=== PATIENT | female | born 1995 | race Caucasian/White ===

== ENCOUNTER 2016-12-21 10:32 | Emergency (ER) | payer OTHER ==
--- NOTE | 2016-12-21 13:01 | DIAGNOSTIC IMAGING REPORT ---
PROCEDURE: XR MANDIBLE PARTIAL INDICATION: LEFT TMJ PAIN TECHNIQUE: 68 COMPARISON: None. FINDINGS: No fracture dislocation. TMJs appear normal. Soft tissues are unremarkable. IMPRESSION: 1. Negative study. Consider TMJ MRI.
--- NOTE | 2016-12-21 13:19 | ED NURSING NOTES ---
Clinical Report - Nurses [facility] [address] [place] [address] 12/21/2016 10:34 Patient: JAMES GONSALEZ TRIAGE Triage time 10:42. Acuity: LEVEL 4. Chief Complaint: JAW PAIN and (left jaw unable to eat). Alert. No acute distress. --10:45 Herlinda Noyola R.N. 10:46 12/21/16. BP: 118/80. HR: 88. RR: 16. O2 saturation: 100%. Temp: 98.3 F. Pain level now 5/10. --10:47 Herlinda Noyola R.N. Weight: 44.4 kg stated. Height/Length: 61 inches Per Patient. BMI: 18.5. --10:43 Herlinda Noyola R.N. Medications Albuterol Sulfate Inhalation. control patch. --10:44 Herlinda oNyola R.N. Allergies Amoxicillin. Penicillin. Sulfa Antibiotics. --10:44 Herlinda Noyola R.N. History Arrived by private vehicle, and accompanied by family. Primary physician (Kirk). Onset. (about 1 weeks). 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 SOCIAL HX: Heavy tobacco smoker (cigarette)- less than 1 pack per day. History of heavy drug use: marijuana. No alcohol use. --10:45 Herlinda Noyola R.N. The patient has no dental appointment scheduled. --10:47 Herlinda Noyola R.N. PROBLEMS: Gastroenteritis. Dental Pain. Asthma. Vomiting. URI. UTI - Urinary Tract Infection. Radius Fracture. Contusion. Tetanus Status. Immunizations. LNMP - Last Normal Menstrual Period. --10:44 Herlinda Noyola R.N. ADDITIONAL SURGERIES: Dental Surgery. --10:44 Herlinda Noyola R.N. PHYSICAL ASSESSMENT Ambulatory to room. GENERAL / NEURO / PSYCH: Alert. Oriented X 4. Appears in no acute distress. --10:47 Herlinda Noyola R.N. NURSING PROGRESS NOTES Two patient identifiers checked. Call light placed in reach. Side rails up x 1. Patient ready for evaluation- ED physician notified. --10:48 Herlinda Noyola R.N. 11:34 12/21/2016 Percocet (Oxycodone-Acetaminophen) PO 0.5 tablet given. Allergies verified, confirmed 5 rights and sedative warning given to the patient. --11:34 Herlinda Noyola R.N. DISPOSITION / DISCHARGE Departure time: 13:34. Condition at departure: improved. No learning barriers present. Discharge instructions provided and reviewed with the patient. Parent verbalized understanding. Written instructions provided in Greek. The patient was discharged home and accompanied by parent. She left the Emergency Department ambulatory and via private vehicle. Parent driving. --13:34 Herlinda Noyola R.N. 13:34 12/21/16. BP: 116/78. HR: 80. RR: 16. O2 saturation: 99%. Pain level now 10. --13:34 Herlinda Noyola R.N. Locked/Released at 12/21/2016 14:39 by Herlinda Noyola R.N.
--- NOTE | 2016-12-21 13:19 | ED CLINICAL REPORT ---
Clinical Report - Physicians/Mid Levels [facility] [address] [place] [address] 12/21/2016 10:34 Patient: JAMES GONSALEZ Time Seen: 1045; initial patient contact. Arrived- By private vehicle. Historian- patient. HISTORY OF PRESENT ILLNESS Chief Complaint: left TMJ area. Location of injuries- (left TMJ area). The injury occurred past a few days. Occurred at home. (states she was chewing and felt a pop). The patient complains of moderate pain. No blow to the head, neck pain, loss of consciousness or seizure. Not dazed. no recent dental work or tooth pain. REVIEW OF SYSTEMS All systems otherwise negative, except as recorded above. PAST HISTORY See nurses notes. Tetanus immunization status is up-to-date. Medications: Albuterol Sulfate Inhalation. control patch. Allergies: Amoxicillin. Penicillin. Sulfa Antibiotics. PHYSICAL EXAM Appearance: Alert. No acute distress. Head: Head non-tender. No swelling of head. Eyes: Pupils equal, round and reactive to light. EOM intact. ENT: No dental injury. No hemotympanum. Pharynx normal. (left TMJ tenderness. no clicking. no avinash abnormalities. no crepitus. normal dentition). Neck: Painful ROM in the neck. No decreased ROM or muscle spasm in the neck. No pain with movement of head/neck. Tenderness present. No vertebral tenderness. CVS: Normal heart rate and rhythm. Heart sounds normal. Pulses normal. Respiratory: Breath sounds normal. Chest nontender. Abdomen: Soft and nontender. No organomegaly. Skin: Skin intact. Skin warm and dry. Normal skin color. Normal skin turgor. LABS, X-RAYS, AND EKG Mandible X-rays: (PROCEDURE: XR MANDIBLE PARTIAL INDICATION: LEFT TMJ PAIN TECHNIQUE: 68 COMPARISON: None. FINDINGS: No fracture dislocation. TMJs appear normal. Soft tissues are unremarkable. IMPRESSION: 1. Negative study. Consider TMJ MRI.). The X-rays were independently viewed by me and interpreted by the radiologist. The X-rays were discussed with the radiologist (via pacs). PROGRESS AND PROCEDURES Course of Care: Patient with left TMJ tenderness. No signs of infection. patient with no signs of dislocation. Patient able to open mouth fully. Work up for mandibular xray ordered for possible osseous abnormality. Patient agreeable. Work up shows patient without dislocation. Pain improved. Discussed with patient work up, diagnosis, home care, follow up, and return precautions. All questions answered. patient expressed understanding of these instructions and was agreeable to them. Disposition: Discharged. Condition: good. CLINICAL IMPRESSION 12/21/2016 10:46 BP: 118/80. HR: 88. RR: 16. O2 saturation: 100%. Temp: 98.3 F. Blood pressure normal. Oxygen saturation normal. Left sided acute temporomandibular joint syndrome. INSTRUCTIONS Warnings: GENERAL WARNINGS: Return or contact your physician immediately if your condition worsens or changes unexpectedly, if not improving as expected, or if other problems arise. Specifically return if pain, vomiting, bleeding, breathing difficulty or fever. Your Current Medications: CONTINUE TAKING THE FOLLOWING MEDICATIONS: Albuterol Sulfate Inhalation. control patch*. Prescription Medications: Motrin 600 mg tablets: take 1 tablet orally every 6 hours as needed for pain, stiffness or swelling. Dispense thirty (30). No refill. Substitution is permissible. (take with food) Percocet 5 mg/325 mg: take 1 tablet orally every 6 hours as needed for pain. Dispense twelve (12). No refill. Substitution is permissible. Follow-up: Return to the emergency department as needed. Follow up with your doctor in three days. Reason for referral: recheck today's concerns. Summary of care provided to patient via paper. Screening today revealed the patient's blood pressure to be in the normal range. The patient should follow up with a primary care provider for blood pressure management. Understanding of the discharge instructions verbalized by patient. Follow-up with: Eduardo Hylton MD, ENT, , [address], , [place], [id number] Follow up in one week. Reason for referral: recheck today's concerns. . Summary of care provided to patient via paper. (Electronically signed by Matt Wong Dr. 12/23/2016 9:39)
--- NOTE | 2016-12-21 13:19 | ED ORDER SUMMARY ---
..... Patient: JAMES GONSALEZ OrderSheet [facility] VisitID: [id number] [place] [address] 21y, F Registration Date/Time: 12/21/2016 ORDER SHEET Weight: 44.4 kg (stated) Allergies: Amoxicillin, Penicillin, Sulfa Antibiotics GENERAL ORDERS: Mandible Partial Urgent (11:14 12/21/2016 Benson Umaña) (Ack 11:17 PRnelsynandez) (11:27 DMaziarka R.N.) MEDICATION ORDERS: Percocet PO 5/325 mg (HIGH ALERT MEDICATION, NOW) (11:14 12/21/2016 Benson Umaña) (Ack 11:27 DMaziarka R.N.) (11:34 DMaziarka R.N.) IV FLUIDS: ORDER SHEET NOTES: [Electronically signed by Herlinda Noyola R.N. (14:39 12/21/2016)] [Electronically signed by Matt Wong Dr. (09:39 12/23/2016)] [Electronically locked/signed by Herlinda Noyola R.N. (14:39 12/21/2016)]
--- NOTE | 2016-12-21 13:19 | ED CLINICAL REPORT ---
Clinical Report - Physicians/Mid Levels [facility] [address] [place] [address] 12/21/2016 10:34 Patient: JAMES GONSALEZ Time Seen: 1045; initial patient contact. Arrived- By private vehicle. Historian- patient. HISTORY OF PRESENT ILLNESS Chief Complaint: left TMJ area. Location of injuries- (left TMJ area). The injury occurred past a few days. Occurred at home. (states she was chewing and felt a pop). The patient complains of moderate pain. No blow to the head, neck pain, loss of consciousness or seizure. Not dazed. no recent dental work or tooth pain. REVIEW OF SYSTEMS All systems otherwise negative, except as recorded above. PAST HISTORY See nurses notes. Tetanus immunization status is up-to-date. Medications: Albuterol Sulfate Inhalation. control patch. Allergies: Amoxicillin. Penicillin. Sulfa Antibiotics. PHYSICAL EXAM Appearance: Alert. No acute distress. Head: Head non-tender. No swelling of head. Eyes: Pupils equal, round and reactive to light. EOM intact. ENT: No dental injury. No hemotympanum. Pharynx normal. (left TMJ tenderness. no clicking. no avinash abnormalities. no crepitus. normal dentition). Neck: Painful ROM in the neck. No decreased ROM or muscle spasm in the neck. No pain with movement of head/neck. Tenderness present. No vertebral tenderness. CVS: Normal heart rate and rhythm. Heart sounds normal. Pulses normal. Respiratory: Breath sounds normal. Chest nontender. Abdomen: Soft and nontender. No organomegaly. Skin: Skin intact. Skin warm and dry. Normal skin color. Normal skin turgor. LABS, X-RAYS, AND EKG Mandible X-rays: (PROCEDURE: XR MANDIBLE PARTIAL INDICATION: LEFT TMJ PAIN TECHNIQUE: 68 COMPARISON: None. FINDINGS: No fracture dislocation. TMJs appear normal. Soft tissues are unremarkable. IMPRESSION: 1. Negative study. Consider TMJ MRI.). The X-rays were independently viewed by me and interpreted by the radiologist. The X-rays were discussed with the radiologist (via pacs). PROGRESS AND PROCEDURES Course of Care: Patient with left TMJ tenderness. No signs of infection. patient with no signs of dislocation. Patient able to open mouth fully. Work up for mandibular xray ordered for possible osseous abnormality. Patient agreeable. Work up shows patient without dislocation. Pain improved. Discussed with patient work up, diagnosis, home care, follow up, and return precautions. All questions answered. patient expressed understanding of these instructions and was agreeable to them. Disposition: Discharged. Condition: good. CLINICAL IMPRESSION 12/21/2016 10:46 BP: 118/80. HR: 88. RR: 16. O2 saturation: 100%. Temp: 98.3 F. Blood pressure normal. Oxygen saturation normal. Left sided acute temporomandibular joint syndrome. INSTRUCTIONS Warnings: GENERAL WARNINGS: Return or contact your physician immediately if your condition worsens or changes unexpectedly, if not improving as expected, or if other problems arise. Specifically return if pain, vomiting, bleeding, breathing difficulty or fever. Your Current Medications: CONTINUE TAKING THE FOLLOWING MEDICATIONS: Albuterol Sulfate Inhalation. control patch*. Prescription Medications: Motrin 600 mg tablets: take 1 tablet orally every 6 hours as needed for pain, stiffness or swelling. Dispense thirty (30). No refill. Substitution is permissible. (take with food) Percocet 5 mg/325 mg: take 1 tablet orally every 6 hours as needed for pain. Dispense twelve (12). No refill. Substitution is permissible. Follow-up: Return to the emergency department as needed. Follow up with your doctor in three days. Reason for referral: recheck today's concerns. Summary of care provided to patient via paper. Screening today revealed the patient's blood pressure to be in the normal range. The patient should follow up with a primary care provider for blood pressure management. Understanding of the discharge instructions verbalized by patient. Follow-up with: Eduardo Hylton MD, ENT, , [address], , [place], [id number] Follow up in one week. Reason for referral: recheck today's concerns. . Summary of care provided to patient via paper. (Electronically signed by Matt Wong Dr. 12/23/2016 9:39)
--- NOTE | 2016-12-21 13:19 | ED ORDER SUMMARY ---
..... Patient: JAMES GONSALEZ OrderSheet [facility] VisitID: [id number] [place] [address] 21y, F Registration Date/Time: 12/21/2016 ORDER SHEET Weight: 44.4 kg (stated) Allergies: Amoxicillin, Penicillin, Sulfa Antibiotics GENERAL ORDERS: Mandible Partial Urgent (11:14 12/21/2016 Benson Umaña) (Ack 11:17 NMnelsynandez) (11:27 DMaziarka R.N.) MEDICATION ORDERS: Percocet PO 5/325 mg (HIGH ALERT MEDICATION, NOW) (11:14 12/21/2016 Benson Umaña) (Ack 11:27 DMaziarka R.N.) (11:34 DMaziarka R.N.) IV FLUIDS: ORDER SHEET NOTES: [Electronically signed by Herlinda Noyola R.N. (14:39 12/21/2016)] [Electronically signed by Matt Wong Dr. (09:39 12/23/2016)] [Electronically locked/signed by Herlinda Noyola R.N. (14:39 12/21/2016)]
--- NOTE | 2016-12-21 13:19 | ED NURSING NOTES ---
Clinical Report - Nurses [facility] [address] [place] [address] 12/21/2016 10:34 Patient: JAMES GONSALEZ TRIAGE Triage time 10:42. Acuity: LEVEL 4. Chief Complaint: JAW PAIN and (left jaw unable to eat). Alert. No acute distress. --10:45 Herlinda Noyola R.N. 10:46 12/21/16. BP: 118/80. HR: 88. RR: 16. O2 saturation: 100%. Temp: 98.3 F. Pain level now 5/10. --10:47 Herlinda Noyola R.N. Weight: 44.4 kg stated. Height/Length: 61 inches Per Patient. BMI: 18.5. --10:43 Herlinda Noyola R.N. Medications Albuterol Sulfate Inhalation. control patch. --10:44 Herlinda Noyola R.N. Allergies Amoxicillin. Penicillin. Sulfa Antibiotics. --10:44 Herlinda Noyola R.N. History Arrived by private vehicle, and accompanied by family. Primary physician (Kirk). Onset. (about 1 weeks). 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 SOCIAL HX: Heavy tobacco smoker (cigarette)- less than 1 pack per day. History of heavy drug use: marijuana. No alcohol use. --10:45 Herlinda Noyola R.N. The patient has no dental appointment scheduled. --10:47 Herlinda Noyola R.N. PROBLEMS: Gastroenteritis. Dental Pain. Asthma. Vomiting. URI. UTI - Urinary Tract Infection. Radius Fracture. Contusion. Tetanus Status. Immunizations. LNMP - Last Normal Menstrual Period. --10:44 Herlinda Noyola R.N. ADDITIONAL SURGERIES: Dental Surgery. --10:44 Herlinda Noyola R.N. PHYSICAL ASSESSMENT Ambulatory to room. GENERAL / NEURO / PSYCH: Alert. Oriented X 4. Appears in no acute distress. --10:47 Herlinda Noyola R.N. NURSING PROGRESS NOTES Two patient identifiers checked. Call light placed in reach. Side rails up x 1. Patient ready for evaluation- ED physician notified. --10:48 Herlinda Noyola R.N. 11:34 12/21/2016 Percocet (Oxycodone-Acetaminophen) PO 0.5 tablet given. Allergies verified, confirmed 5 rights and sedative warning given to the patient. --11:34 Herlinda Noyola R.N. DISPOSITION / DISCHARGE Departure time: 13:34. Condition at departure: improved. No learning barriers present. Discharge instructions provided and reviewed with the patient. Parent verbalized understanding. Written instructions provided in Slovak. The patient was discharged home and accompanied by parent. She left the Emergency Department ambulatory and via private vehicle. Parent driving. --13:34 Herlinda Noyola R.N. 13:34 12/21/16. BP: 116/78. HR: 80. RR: 16. O2 saturation: 99%. Pain level now 10. --13:34 Herlinda Noyola R.N. Locked/Released at 12/21/2016 14:39 by Herlinda Noyola R.N.
--- NOTE | 2016-12-23 09:39 | ED DISCHARGE INSTRUCTIONS ---
Patient: JAMES GONSALEZ General Instructions [facility] VisitID: [id number] [address] [place] [address] 21y, F Registration Date/Time: 12/21/2016 12/21/2016 10:46 BP: 118/80. HR: 88. RR: 16. O2 saturation: 100%. Temp: 98.3 F. Blood pressure normal. Oxygen saturation normal. Left sided acute temporomandibular joint syndrome. INSTRUCTIONS Warnings: GENERAL WARNINGS: Return or contact your physician immediately if your condition worsens or changes unexpectedly, if not improving as expected, or if other problems arise. Specifically return if pain, vomiting, bleeding, breathing difficulty or fever. Your Current Medications: CONTINUE TAKING THE FOLLOWING MEDICATIONS: Albuterol Sulfate Inhalation. control patch*. Prescription Medications: Motrin 600 mg tablets: take 1 tablet orally every 6 hours as needed for pain, stiffness or swelling. Dispense thirty (30). No refill. Substitution is permissible. (take with food) Percocet 5 mg/325 mg: take 1 tablet orally every 6 hours as needed for pain. Dispense twelve (12). No refill. Substitution is permissible. Follow-up: Return to the emergency department as needed. Follow up with your doctor in three days. Reason for referral: recheck today's concerns. Summary of care provided to patient via paper. Screening today revealed the patient's blood pressure to be in the normal range. The patient should follow up with a primary care provider for blood pressure management. Understanding of the discharge instructions verbalized by patient. Follow-up with: Eduardo Hylton MD, ENT, , [address] , [place], [id number] Follow up in one week. Reason for referral: recheck today's concerns. . Summary of care provided to patient via paper. ADDITIONAL INFORMATION TMJ Syndrome This is a condition with chronic or recurrent pain in the joint of the jaw (in front of the ear). The pain may cause limited motion of the jaw, a locking or catching sensation, clicking, popping or grinding sounds from the joint with movement. It may also lead to headache, earache or neck pain. It is sometimes caused by inflammation in the joint, injury or [id number] of the cartilage in the joint, involuntary grinding of the teeth or poorly fitting dentures. Emotional stress and tension are often a factor. Most cases resolve completely within a few months with proper treatment. Home Care: 1) Rest the jaw by avoiding crunchy or hard foods to chew. Do not eat hard or sticky candies. Soft foods and liquids are easier on the jaw. Protect your jaw while yawning. 2) Hot packs (small towel soaked in hot water) applied to the jaw may give relief by reducing muscle spasm. You may use a heating pad or a towel soaked in hot water. Some people get relief with cold packs, so try both and see which one works best for you. 3) You may use acetaminophen (Tylenol) or ibuprofen (Motrin, Advil) to control pain, unless another medicine was prescribed. [ NOTE : If you have chronic liver or kidney disease or ever had a stomach ulcer or GI bleeding, talk with your doctor before using these medicines.] 4) If you suspect emotional stress is related to your condition. a) Try to identify the sources of stress in your life. It may not be obvious! These may include: -- Daily hassles of life that pile up (traffic jams, missed appointments, car troubles) -- Major life changes, both good (new baby, job promotion) and bad (loss of job, loss of loved one) -- Overload: feeling that you have too many responsibilities and can't take care of everything at once -- Helplessness: feeling like your problems are more than you can solve b) When possible, do something about the source of your stress: avoid hassles, limit the amount of change that is happening in your life at one time and take a break when you feel overloaded. c) Unfortunately, many stressful situations cannot be avoided. Therefore, it is necessary to learn HOW TO MANAGE STRESS better. There are many proven methods that work and will reduce your anxiety. These include simple things like exercise, good nutrition and adequate rest. Also, there are certain techniques that are helpful: relaxation and breathing exercises, visualization, biofeedback, meditation or simply taking some time-out to clear your mind. For more information about this, consult your doctor or go to a local bookstore and review the many books and tapes available on this subject. Follow-Up as directed with a dentist or oral surgeon. Further testing and additional treatment may be required. If you grind your teeth at night, a custom-made "bite guard" may help you. If stress is an important factor and does not respond to the above simple measures, talk to your doctor about a referral for stress management. Get Prompt Medical Attention if any of the following occur: -- Your face becomes swollen or red -- Pain worsens -- 100.0F (37.8C) -- Increasing neck, mouth, tooth or throat pain Ibuprofen Oral tablet What is this medicine? IBUPROFEN (eye BYOO proe fen) is a non-steroidal anti-inflammatory drug (NSAID). It is used for dental pain, fever, headaches or migraines, osteoarthritis, rheumatoid arthritis, or painful monthly periods. It can also relieve minor aches and pains caused by a cold, flu, or sore throat. How should I use this medicine? Take this medicine by mouth with a glass of water. Follow the directions on the prescription label. Take this medicine with food if your stomach gets upset. Try to not lie down for at least 10 minutes after you take the medicine. Take your medicine at regular intervals. Do not take your medicine more often than directed. A special MedGuide will be given to you by the pharmacist with each prescription and refill. Be sure to read this information carefully each time. Talk to your patent solicitor regarding the use of this medicine in children. Special care may be needed. What side effects may I notice from receiving this medicine? Side effects that you should report to your doctor or health career and transition teacher as soon as possible: allergic reactions like skin rash, itching or hives, swelling of the face, lips, or tongue black or bloody stools, blood in the urine or in vomit breathing problems changes in vision chest pain general ill feeling or flu-like symptoms nausea or vomiting redness, blistering, peeling or loosening of the skin, including inside the mouth slurred speech or weakness on one side of the body stomach pain unexplained weight gain or swelling unusually weak or tired yellowing of eyes or skin Side effects that usually do not require medical attention (report to your doctor or health career and transition teacher if they continue or are bothersome): constipation or diarrhea dizziness gas or heartburn stomach upset What may interact with this medicine? Do not take this medicine with any of the following medications: cidofovir ketorolac methotrexate pemetrexed This medicine may also interact with the following medications: alcohol aspirin diuretics lithium other drugs for inflammation like prednisone warfarin What if I miss a dose? If you miss a dose, take it as soon as you can. If it is almost time for your next dose, take only that dose. Do not take double or extra doses. Where should I keep my medicine? Keep out of the reach of children. Store at room temperature between 15 and 30 degrees C (59 and 86 degrees F). Keep container tightly closed. Throw away any unused medicine after the expiration date. What should I tell my health care provider before I take this medicine? They need to know if you have any of these conditions: asthma cigarette smoker drink more than 3 alcohol containing drinks a day heart disease or circulation problems such as heart failure or leg edema (fluid retention) high blood pressure kidney disease liver disease stomach bleeding or ulcers an unusual or allergic reaction to ibuprofen, aspirin, other NSAIDS, other medicines, foods, dyes, or preservatives or trying to get breast-feeding What should I watch for while using this medicine? Tell your doctor or healthcare professional if your symptoms do not start to get better or if they get worse. This medicine does not prevent heart attack or stroke. In fact, this medicine may increase the chance of a heart attack or stroke. The chance may increase with longer use of this medicine and in people who have heart disease. If you take aspirin to prevent heart attack or stroke, talk with your doctor or health career and transition teacher. Do not take other medicines that contain aspirin, ibuprofen, or naproxen with this medicine. Side effects such as stomach upset, nausea, or ulcers may be more likely to occur. Many medicines available without a prescription should not be taken with this medicine. This medicine can cause ulcers and bleeding in the stomach and intestines at any time during treatment. Ulcers and bleeding can happen without warning symptoms and can cause . To reduce your risk, do not smoke cigarettes or drink alcohol while you are taking this medicine. You may get drowsy or dizzy. Do not drive, use machinery, or do anything that needs mental alertness until you know how this medicine affects you. Do not stand or sit up quickly, especially if you are an older patient. This reduces the risk of dizzy or fainting spells. This medicine can cause you to bleed more easily. Try to avoid damage to your teeth and gums when you brush or floss your teeth. Oxycodone Hydrochloride, Acetaminophen Oral tablet What is this medicine? ACETAMINOPHEN; OXYCODONE (a set a NATALIYA suzie fen; ox i KOE done) is a pain reliever. It is used to treat mild to moderate pain. How should I use this medicine? Take this medicine by mouth with a full glass of water. Follow the directions on the prescription label. Take your medicine at regular intervals. Do not take your medicine more often than directed. Talk to your patent solicitor regarding the use of this medicine in children. Special care may be needed. Patients over 65 years old may have a stronger reaction and need a smaller dose. What side effects may I notice from receiving this medicine? Side effects that you should report to your doctor or health career and transition teacher as soon as possible: allergic reactions like skin rash, itching or hives, swelling of the face, lips, or tongue breathing difficulties, wheezing confusion light headedness or fainting spells severe stomach pain yellowing of the skin or the whites of the eyes Side effects that usually do not require medical attention (report to your doctor or health career and transition teacher if they continue or are bothersome): dizziness drowsiness nausea vomiting What may interact with this medicine? alcohol antihistamines barbiturates like amobarbital, butalbital, butabarbital, methohexital, pentobarbital, phenobarbital, thiopental, and secobarbital benztropine drugs for bladder problems like solifenacin, trospium, oxybutynin, tolterodine, hyoscyamine, and methscopolamine drugs for breathing problems like ipratropium and tiotropium drugs for certain stomach or intestine problems like propantheline, homatropine methylbromide, glycopyrrolate, atropine, belladonna, and dicyclomine general anesthetics like etomidate, ketamine, nitrous oxide, propofol, desflurane, enflurane, halothane, isoflurane, and sevoflurane medicines for depression, anxiety, or psychotic disturbances medicines for sleep muscle relaxants naltrexone narcotic medicines (opiates) for pain phenothiazines like perphenazine, thioridazine, chlorpromazine, mesoridazine, fluphenazine, prochlorperazine, promazine, and trifluoperazine scopolamine tramadol trihexyphenidyl What if I miss a dose? If you miss a dose, take it as soon as you can. If it is almost time for your next dose, take only that dose. Do not take double or extra doses. Where should I keep my medicine? Keep out of the reach of children. This medicine can be abused. Keep your medicine in a safe place to protect it from theft. Do not share this medicine with anyone. Selling or giving away this medicine is dangerous and against the law. Store at room temperature between 20 and 25 degrees C (68 and 77 degrees F). Keep container tightly closed. Protect from light. This medicine may cause accidental overdose and if it is taken by other adults, children, or pets. Flush any unused medicine down the toilet to reduce the chance of harm. Do not use the medicine after the expiration date. What should I tell my health care provider before I take this medicine? They need to know if you have any of these conditions: brain tumor Crohn's disease, inflammatory bowel disease, or ulcerative colitis drink more than 3 alcohol containing drinks per day drug abuse or addiction head injury heart or circulation problems kidney disease or problems going to the bathroom liver disease lung disease, asthma, or breathing problems an unusual or allergic reaction to acetaminophen, oxycodone, other opioid analgesics, other medicines, foods, dyes, or preservatives or trying to get breast-feeding What should I watch for while using this medicine? Tell your doctor or health career and transition teacher if your pain does not go away, if it gets worse, or if you have new or a different type of pain. You may develop tolerance to the medicine. Tolerance means that you will need a higher dose of the medication for pain relief. Tolerance is normal and is expected if you take this medicine for a long time. Do not suddenly stop taking your medicine because you may develop a severe reaction. Your body becomes used to the medicine. This does NOT mean you are addicted. Addiction is a behavior related to getting and using a drug for a non-medical reason. If you have pain, you have a medical reason to take pain medicine. Your doctor will tell you how much medicine to take. If your doctor wants you to stop the medicine, the dose will be slowly lowered over time to avoid any side effects. You may get drowsy or dizzy. Do not drive, use machinery, or do anything that needs mental alertness until you know how this medicine affects you. Do not stand or sit up quickly, especially if you are an older patient. This reduces the risk of dizzy or fainting spells. Alcohol may interfere with the effect of this medicine. Avoid alcoholic drinks. There are different types of narcotic medicines (opiates) for pain. If you take more than one type at the same time, you may have more side effects. Give your health care provider a list of all medicines you use. Your doctor will tell you how much medicine to take. Do not take more medicine than directed. Call emergency for help if you have problems breathing. The medicine will cause constipation. Try to have a bowel movement at least every 2 to 3 days. If you do not have a bowel movement for 3 days, call your doctor or health career and transition teacher. Do not take Tylenol (acetaminophen) or medicines that have acetaminophen with this medicine. Too much acetaminophen can be very dangerous. Many nonprescription medicines contain acetaminophen. Always read the labels carefully to avoid taking more acetaminophen. You have been given the following additional information: TMJ Syndrome Ibuprofen Oral tablet Oxycodone Hydrochloride, Acetaminophen Oral tablet (Electronically signed by Matt Wong Dr. 12/23/2016 9:39)
--- NOTE | 2016-12-23 09:39 | ED MAR SUMMARY ---
..... Medication Administration Record [facility] [address] [place] [address] Patient: JAMES GONSALEZ Visit ID: [id number] 21y, F Weight: 44.4 kg Height/Length: 61 in BMI: 18.5 ALLERGIES: Amoxicillin, Penicillin, Sulfa Antibiotics Given 11:34 12/21/2016 Herlinda Noyola R.N. Medication Administered: PERCOCET [PO] (OXYCODONE-ACETAMINOPHEN), Dose: 0.5 tablet PO. Medication Ordered: Percocet PO 5/325 mg (HIGH ALERT MEDICATION, NOW).
--- NOTE | 2016-12-23 09:39 | ED MED RECONCILIATION SUMMARY ---
Patient: JAMES GONSALEZ Medication Reconciliation Report [facility] VisitID: [id number] [place] [address] 21y, F Registration Date/Time: 12/21/2016 Weight: 44.4 kg Height/Length: 61 in. BMI: 18.5 ALLERGIES: Amoxicillin, Penicillin, Sulfa Antibiotics The patient's Home Medications are listed below: CONTINUE TAKING THE FOLLOWING MEDICATIONS: Albuterol Sulfate Inhalation control patch The source(s) of the original Home Medication information: Not obtained. The following Medications were given to the patient in the Emergency Department: Percocet [PO] PO 0.5 tablet, administered: 12/21/2016 11:34:00 AM The following Medications were prescribed to the patient: Motrin 600 mg tablets: take 1 tablet orally every 6 hours as needed for pain, stiffness or swelling. Dispense thirty (30). No refill. Substitution is permissible.(take with food) -- Matt Wong Dr. Percocet 5 mg/325 mg: take 1 tablet orally every 6 hours as needed for pain. Dispense twelve (12). No refill. Substitution is permissible. -- Matt Wong Dr.
--- NOTE | 2016-12-23 09:39 | ED MAR SUMMARY ---
..... Medication Administration Record [facility] [address] [place] [address] Patient: JAMES GONSALEZ Visit ID: [id number] 21y, F Weight: 44.4 kg Height/Length: 61 in BMI: 18.5 ALLERGIES: Amoxicillin, Penicillin, Sulfa Antibiotics Given 11:34 12/21/2016 Herlinda Noyola R.N. Medication Administered: PERCOCET [PO] (OXYCODONE-ACETAMINOPHEN), Dose: 0.5 tablet PO. Medication Ordered: Percocet PO 5/325 mg (HIGH ALERT MEDICATION, NOW).
--- NOTE | 2016-12-23 09:39 | ED MED RECONCILIATION SUMMARY ---
Patient: JAMES GONSALEZ Medication Reconciliation Report [facility] VisitID: [id number] [place] [address] 21y, F Registration Date/Time: 12/21/2016 Weight: 44.4 kg Height/Length: 61 in. BMI: 18.5 ALLERGIES: Amoxicillin, Penicillin, Sulfa Antibiotics The patient's Home Medications are listed below: CONTINUE TAKING THE FOLLOWING MEDICATIONS: Albuterol Sulfate Inhalation control patch The source(s) of the original Home Medication information: Not obtained. The following Medications were given to the patient in the Emergency Department: Percocet [PO] PO 0.5 tablet, administered: 12/21/2016 11:34:00 AM The following Medications were prescribed to the patient: Motrin 600 mg tablets: take 1 tablet orally every 6 hours as needed for pain, stiffness or swelling. Dispense thirty (30). No refill. Substitution is permissible.(take with food) -- Matt Wong Dr. Percocet 5 mg/325 mg: take 1 tablet orally every 6 hours as needed for pain. Dispense twelve (12). No refill. Substitution is permissible. -- Matt Wong Dr.
== END 2016-12-21 13:33 | disposition home or self-care (01) ==
LOC: ED SRH 10:32
DX: M26.622 Arthralgia of left temporomandibular joint (principal); Z88.1 Allergy status to other antibiotic agents; Z88.0 Allergy status to penicillin; Z88.2 Allergy status to sulfonamides